=== PATIENT | male | born 1960 | race Caucasian/White ===

== ENCOUNTER 2023-07-05 19:41 | Emergency (ER) | payer BC ==
[~2023-07-05] VITALS: Ht 172.7 cm; Wt 99.8 kg
[2023-07-05] MEDS ORDERED: ACETAMINOPHEN ES 500 MG TABLET ONE (22:36)
[2023-07-05] MEDS ORDERED: KETOROLAC TROMETHAMINE 15 MG/ML VIAL ONE (22:36)
[2023-07-05] MEDS ORDERED: LIDOCAINE 5% (PATCH) 1 EA PATCH TP ONE (22:36)
[2023-07-05] MEDS: ACETAMINOPHEN ES 500 MG TABLET PO ONE (23:09)
[2023-07-05] MEDS: KETOROLAC TROMETHAMINE 15 MG/ML VIAL IM ONE (23:09)
[2023-07-05] MEDS: LIDOCAINE 5% (PATCH) 1 EA PATCH TP ONE (23:09)
[2023-07-05] MEDS ORDERED: CYCLOBENZAPRINE 10 MG TABLET ONE (23:37)
[2023-07-05] MEDS: CYCLOBENZAPRINE 10 MG TABLET PO ONE (23:39)
[2023-07-05] MEDS ORDERED: CYCL5TAB PO (23:42)
[2023-07-05] MEDS ORDERED: ACET-2605 PO (23:42)
[2023-07-05] MEDS ORDERED: IBUP-1957 PO (23:42)
[2023-07-06 01:07] VITALS: BP 137/88; TEMP 97.7; O2SAT 96
== END 2023-07-06 01:10 | disposition home or self-care (01) ==
LOC: ER 19:47
DX: G89.29 Other chronic pain (principal); M54.50 Low back pain, unspecified; I10 Essential (primary) hypertension; Z79.899 Other long term (current) drug therapy; Z88.1 Allergy status to other antibiotic agents
CPT/HCPCS: 99284; 96372; J1885